=== PATIENT | male | born 1965 | race Caucasian/White ===

== ENCOUNTER 2022-05-30 10:44 | Emergency (ER) | payer BC ==
[~2022-05-30] VITALS: Ht 160 cm; Wt 70.8 kg
[2022-05-30] MEDS ORDERED: ACETAMINOPHEN 325 MG TABLET PO ONE (11:00)
[2022-05-30] MEDS ORDERED: IV NORMAL SALINE 500 ML BAG IV ONE (11:00)
== END 2022-05-30 12:10 | disposition home or self-care (01) ==
LOC: ER 10:51
DX: R22.2 Localized swelling, mass and lump, trunk (principal); M54.9 Dorsalgia, unspecified; I25.2 Old myocardial infarction; E11.9 Type 2 diabetes mellitus without complications; Z95.5 Presence of coronary angioplasty implant and graft
CPT/HCPCS: A4663